=== PATIENT | female | born 1945 | race Caucasian/White ===

== ENCOUNTER → 2017-08-08 | Outpatient (CLI) | payer MEDICARE, BC ==
[~2017-08-08] MED LIST: CALTRATE 600+D1 TAB PO; CIPROFLOXACIN500 M1 PO; GABAPENTIN300 M1 PO; LOSARTAN POTASS50 MG PO; OSTEOBIFLEX; OXYBUTYNIN CHLO10 MG PO; OXYCODONE/APAP1 TA5 PO; SIMVASTATIN40 MG PO
--- NOTE | 2017-08-09 15:55 | RADIOLOGY REPORT PS360 ---
DIG MAMM-SCREEN HIRAL W/CAD ORDERING PHYSICIAN : Corinna Le MD PATIENT AGE: 71 years GENDER: Female COMPARISON: July also 2013 HISTORY: Family history. Sister with breast cancer TECHNIQUE: Std CC & MLO images were obtained. R2 CAD reviewed. FINDINGS: Minimal fibroglandular elements bilaterally with generalized fatty replacement. No dominant mass nor suspicious calcifications. RIGHT BREAST: Stable. No new areas of concern. LEFT BREAST: The area of minimal asymmetric glandular density density towards inferior left breast unchanged since previous studies IMPRESSION: Negative Stable bilateral mammogram. No new areas of concern Follow-up in one year recommended BI-RADS CATEGORY: 1_Negative RECOMMENDED FOLLOWUP: 12M 12 MONTH FOLLOW-UP (A letter has been sent to the patient regarding results of the study.)
== END ==
LOC: RAD 09:41
DX: Z12.31 Encounter for screening mammogram for malignant neoplasm of breast (principal)
CPT/HCPCS: G0202